=== PATIENT | male | born 1990 | race Two or more races ===

== ENCOUNTER 2025-01-11 16:42 | Emergency (ER) | payer MEDICAID ==
[~2025-01-11] VITALS: Ht 180.3 cm; Wt 110.2 kg
[2025-01-11] MEDS ORDERED: SULF1TAB48 PO (17:55)
[2025-01-11] MEDS ORDERED: CEPH-570 PO (17:55)
[2025-01-11 18:05] VITALS: BP 110/70; TEMP 98.3; O2SAT 99
[2025-01-12] MEDS ORDERED: NAPR-1009 PO (11:37)
[2025-01-12] MEDS ORDERED: TRAM50TA2 PO (11:37)
[2025-01-12] MEDS ORDERED: MUPI22OI7 TP (11:37)
== END 2025-01-11 18:06 | disposition home or self-care (01) ==
LOC: ER 16:50
DX: L02.01 Cutaneous abscess of face (principal); F17.200 Nicotine dependence, unspecified, uncomplicated; Z79.899 Other long term (current) drug therapy

== ENCOUNTER 2025-01-12 10:53 | Emergency (ER) | payer MEDICAID ==
[~2025-01-12] VITALS: Ht 180.3 cm; Wt 111.1 kg
[~2025-01-12 10:53] MED LIST: CEPH-570 PO; SULF1TAB48 PO
[2025-01-12] MEDS ORDERED: NAPR-1009 PO (11:37)
[2025-01-12] MEDS ORDERED: MUPI22OI7 TP (11:37)
[2025-01-12] MEDS ORDERED: TRAM50TA2 PO (11:37)
[2025-01-12] MEDS ORDERED: HYDROCODONE/APAP 5/325MG TABLET ONE (11:47)
[2025-01-12] MEDS ORDERED: NAPROXEN 250 MG TABLET ONE (11:47)
[2025-01-12] MEDS: NAPROXEN 250 MG TABLET PO ONE (11:49)
[2025-01-12] MEDS: HYDROCODONE/APAP 5/325MG TABLET PO ONE (11:50)
[2025-01-12 11:51] VITALS: BP 129/66; TEMP 98.3; O2SAT 97
== END 2025-01-12 11:52 | disposition home or self-care (01) ==
LOC: ER 10:53
DX: J34.0 Abscess, furuncle and carbuncle of nose (principal); J01.90 Acute sinusitis, unspecified; F17.200 Nicotine dependence, unspecified, uncomplicated; Z79.899 Other long term (current) drug therapy